=== PATIENT | male | born 1960 | race Caucasian/White ===

== ENCOUNTER 2017-05-31 17:58 | Inpatient (IN) | payer BC ==
[~2017-05-31] VITALS: Ht 177.8 cm; Wt 79.4 kg
[2017-05-31] MEDS ORDERED: LEVO25TA4 PO (18:05)
[2017-05-31] MEDS ORDERED: FOLI0.4T2 PO (18:05)
[2017-05-31] MEDS ORDERED: FERR325T18 PO (18:06)
[2017-05-31] MEDS ORDERED: METO25TA35 PO (18:06)
[2017-05-31] MEDS ORDERED: SODIUM CHLORIDE 0.9% 1,000 ML IV ONE (18:13)
[2017-05-31] MEDS ORDERED: ACETAMINOPHEN 325 MG TABLET PO ONE (18:30)
[2017-05-31] MEDS ORDERED: SODIUM CHLORIDE 0.9% 1,000ML IVBOLUS ONE (18:30)
[2017-05-31] MEDS ORDERED: SODIUM CHLORIDE FLUSH 10ML SYR IVF ONE (18:30)
[2017-05-31] MEDS ORDERED: ACETAMINOPHEN 325 MG TABLET ONE (18:42)
[2017-05-31 18:52] LABS: RAPID INFLUENZA A Negative (Negative); RAPID INFLUENZA B Negative (Negative)
[2017-05-31 18:52] LABS: ALANINE AMINOTRANSFERASE 38 U/L (12-78); ALBUMIN 3.2 g/dL (3.4-5.0); ANION GAP 14 mmol/L (5-15); CALCIUM 7.5 mg/dL (8.5-10.1); CHLORIDE 100 mmol/L (98-107); CREATININE 1.08 mg/dL (0.7-1.3)
[2017-05-31 18:58] LABS: ALKALINE PHOSPHATASE 176 U/L (45-117); BILIRUBIN,TOTAL 2.4 mg/dL (0.2-1.0); CREATINE KINASE, TOTAL 551 U/L (39-308); T4 (THYROXINE) 10.9 mcg/dL (4.5-12.1); TROPONIN I 0.026 ng/mL (0.000-0.045)
[2017-05-31 19:07] LABS: MD YES; MEAN CORPUSCULAR HEMOGLOBIN 33.5 pg (27.5-34.5); MEAN CORPUSCULAR HGB CONC 33.2 g/dL (33.2-36.2); MEAN CORPUSCULAR VOLUME 100.9 fL (81-97); MEAN PLATELET VOLUME 10.4 fL (7.4-10.4); PLATELET COUNT 72 x10^3/uL (130-400); RED BLOOD COUNT 3.41 x10^6/uL (4.38-5.82); RED CELL DISTRIBUTION WIDTH 18.3 % (9.4-14.8)
[2017-05-31 19:10] LABS: ANISOCYTOSIS 1+; BAND#(MANUAL) 0.26 x10^3/uL; BANDS%(MANUAL) 4 % (0-7); LYMPH#(MANUAL) 0.64 x10^3/uL (1-3.4); LYMPHS% (MANUAL) 10 % (22-44); MONOS#(MANUAL) 0.96 x10^3/uL (0.3-2.7); MONOS% (MANUAL) 15 % (2-9); POLYCHROMASIA 1+; SEG#(MANUAL) 4.54 x10^3/uL (1.8-6.8); SEGS% (MANUAL) 71 % (42-75)
[2017-05-31 19:11] LABS: <PLATELET ESTIMATE> DECREASED; <PLT MORPHOLOGY> NORMAL PLT MORPH
[2017-05-31] MEDS ORDERED: LORazepam 2 MG/ML, 1ML ONE (19:26)
[2017-05-31] MEDS ORDERED: LORazepam 2 MG/ML, 1ML IVPush ONE (19:30)
[2017-05-31 19:39] LABS: MICROSCOPIC INDICATED
[2017-05-31 19:47] LABS: CULTURE INDICATED? NO
[2017-05-31] MEDS ORDERED: CEFTRIAXONE PMX 1GM/50ML 50 ML ONE (20:23)
[2017-05-31] MEDS ORDERED: MAGNESIUM SULFATE PMX 4GM/100M 100 ML IV ONE (20:30)
[2017-05-31] MEDS ORDERED: AZITHROMYCIN 500 MG in SODIUM CHLORIDE 0.9% 250 ML IVPB ONE (20:30)
[2017-05-31] MEDS ORDERED: CEFTRIAXONE PMX 1GM/50ML 50 ML IVPB ONE (20:30)
[2017-05-31] MEDS ORDERED: MAGNESIUM SULFATE 1 GM, THIAMINE 100 MG, FOLIC ACID 1 MG, MVI ADULT 10 ML in SODIUM CHL... IV ONE (20:30)
[2017-05-31] MEDS ORDERED: MAGNESIUM SULFATE 1 GM, FOLIC ACID 1 MG, MVI ADULT 10 ML in SODIUM CHLORIDE 0.9% 1,000 ML IV ONE (20:47)
[2017-05-31] MEDS ORDERED: POTASSIUM CHLORIDE 20 MEQ TAB.ER.PRT PO ONE (21:00)
[2017-05-31] MEDS ORDERED: BISACODYL 10 MG SUPP PR PRN (21:00)
[2017-05-31] MEDS ORDERED: ONDANSETRON 2MG/ML, 2ML IVPush PRN (21:00)
[2017-05-31] MEDS ORDERED: POLYETHYLENE GLYCOL 17 GM PACKET PO PRN (21:00)
[2017-05-31] MEDS ORDERED: VANCOMYCIN PER PHARMACY MC PRN (21:00)
[2017-05-31 21:03] LABS: HCT (SEDRATE) 34.4 % (39.2-51.8)
[2017-05-31 21:05] LABS: FOLATE LEVEL 17.1 ng/mL (3.1-17.5); FREE T4 (FREE THYROXINE) 1.55 ng/dL (0.76-1.46)
[2017-05-31 22:14] VITALS: BP 142/92
[2017-05-31] MEDS ORDERED: PHARMACOKINETIC MONITORING MC PRN (22:30)
[2017-05-31] MEDS: THIAMINE 100MG TABLET PO SCH (22:59)
[2017-05-31] MEDS: FERROUS SULFATE 325 MG TABLET PO SCH (22:59)
[2017-05-31] MEDS: SODIUM CHLORIDE FLUSH 10ML SYR IVF SCH (22:59)
[2017-05-31] MEDS: VANCOMYCIN 1,600 MG in SODIUM CHLORIDE 0.9% 250 ML IV SCH (23:25)
[2017-06-01 01:34] VITALS: BP 122/71
[2017-06-01] MEDS: PIPERACILLIN/TAZO/PMX 3.375GM 50 ML IV SCH ×4 (02:12→20:37)
[2017-06-01] MEDS: LEVOTHYROXINE 25 MCG TABLET PO SCH (04:55)
[2017-06-01 05:33] LABS: MEAN CORPUSCULAR HEMOGLOBIN 34.3 pg (27.5-34.5); MEAN CORPUSCULAR HGB CONC 34.1 g/dL (33.2-36.2); MEAN CORPUSCULAR VOLUME 100.6 fL (81-97); MEAN PLATELET VOLUME 10.5 fL (7.4-10.4); PLATELET COUNT 62 x10^3/uL (130-400); RED BLOOD COUNT 2.92 x10^6/uL (4.38-5.82); RED CELL DISTRIBUTION WIDTH 17.6 % (9.4-14.8)
[2017-06-01 05:34] LABS: CHLORIDE 103 mmol/L (98-107)
[2017-06-01 05:44] LABS: ALANINE AMINOTRANSFERASE 33 U/L (12-78); ALBUMIN 2.7 g/dL (3.4-5.0); ALKALINE PHOSPHATASE 142 U/L (45-117); ANION GAP 10 mmol/L (5-15); CALCIUM 6.8 mg/dL (8.5-10.1); CREATININE 0.95 mg/dL (0.7-1.3); TOTAL PROTEIN 6.8 g/dL (6.4-8.2)
[2017-06-01 06:19] LABS: MD YES
[2017-06-01 06:23] LABS: <PLATELET ESTIMATE> DECREASED; <PLT MORPHOLOGY> NORMAL PLT MORPH; ANISOCYTOSIS 1+; LYMPH#(MANUAL) 0.33 x10^3/uL (1-3.4); LYMPHS% (MANUAL) 8 % (22-44); MONOS#(MANUAL) 1.15 x10^3/uL (0.3-2.7); MONOS% (MANUAL) 28 % (2-9); POLYCHROMASIA 1+; SEG#(MANUAL) 2.62 x10^3/uL (1.8-6.8); SEGS% (MANUAL) 64 % (42-75)
[2017-06-01 06:45] VITALS: BP 134/78
[2017-06-01] MEDS: THIAMINE 100MG TABLET PO SCH ×2 (08:48→20:37)
[2017-06-01] MEDS: FERROUS SULFATE 325 MG TABLET PO SCH ×2 (08:48→17:21)
[2017-06-01] MEDS: FOLIC ACID 1 MG TABLET PO SCH (08:49)
[2017-06-01] MEDS: SODIUM CHLORIDE FLUSH 10ML SYR IVF SCH ×2 (08:49→20:37)
[2017-06-01] MEDS: SENNA/DOCUSATE TABLET PO SCH (08:49)
[2017-06-01] MEDS: MULTIVITAMIN 1 TABLET PO SCH (08:49)
[2017-06-01] MEDS: METOPROLOL TARTRATE 25 MG TABLET PO SCH (08:49)
[2017-06-01] MEDS: POTASSIUM CHLORIDE 20 MEQ TAB.ER.PRT PO SCH ×2 (09:51→17:21)
[2017-06-01] MEDS: VANCOMYCIN 1,600 MG in SODIUM CHLORIDE 0.9% 250 ML IV SCH ×2 (11:40→23:32)
[2017-06-01] MEDS: LORazepam 2 MG/ML, 1ML IVPush PRN ×2 (12:52→22:01)
[2017-06-01] MEDS ORDERED: GADOBUTROL 7.5 MMOL/7.5 ML PFS ONE (13:30)
[2017-06-01 13:40] VITALS: BP 145/94
[2017-06-01 19:30] LABS: CLOSTRIDIUM DIFFICILE ANTIGEN NEGATIVE; CLOSTRIDIUM DIFFICILE TOXIN NEGATIVE (Negative)
[2017-06-01 20:50] VITALS: BP 143/95
[2017-06-02] VITALS (7 sets, daily range): BP systolic 108–173; BP diastolic 52–106
[2017-06-02] MEDS ORDERED: LORazepam 0.5MG TABLET PO PRN (00:30)
[2017-06-02] MEDS ORDERED: LORazepam 1MG TABLET PO PRN ×4 (00:30)
[2017-06-02] MEDS ORDERED: LORazepam 2 MG/ML, 1ML IV PRN ×3 (00:30)
[2017-06-02] MEDS: LORazepam 2 MG/ML, 1ML IV PRN ×8 (00:35→20:40)
[2017-06-02] MEDS: PIPERACILLIN/TAZO/PMX 3.375GM 50 ML IV SCH ×4 (02:01→21:29)
[2017-06-02] MEDS: LEVOTHYROXINE 25 MCG TABLET PO SCH (05:31)
[2017-06-02 06:00] LABS: MEAN CORPUSCULAR HGB CONC 33.8 g/dL (33.2-36.2); MEAN CORPUSCULAR VOLUME 100.6 fL (81-97); MEAN PLATELET VOLUME 10.5 fL (7.4-10.4); PLATELET COUNT 73 x10^3/uL (130-400); RED BLOOD COUNT 2.91 x10^6/uL (4.38-5.82); RED CELL DISTRIBUTION WIDTH 17.6 % (9.4-14.8)
[2017-06-02 06:04] LABS: ALANINE AMINOTRANSFERASE 40 U/L (12-78); ALBUMIN 2.7 g/dL (3.4-5.0); ANION GAP 10 mmol/L (5-15); CALCIUM 6.9 mg/dL (8.5-10.1); CHLORIDE 104 mmol/L (98-107); CREATININE 0.97 mg/dL (0.7-1.3)
[2017-06-02 06:06] LABS: ALKALINE PHOSPHATASE 152 U/L (45-117); BILIRUBIN,TOTAL 2.2 mg/dL (0.2-1.0); TOTAL PROTEIN 6.7 g/dL (6.4-8.2)
[2017-06-02 06:24] LABS: MD YES
[2017-06-02 06:31] LABS: LYMPH#(MANUAL) 0.37 x10^3/uL (1-3.4); LYMPHS% (MANUAL) 8 % (22-44); MONOS#(MANUAL) 0.28 x10^3/uL (0.3-2.7); MONOS% (MANUAL) 6 % (2-9); SEG#(MANUAL) 3.96 x10^3/uL (1.8-6.8); SEGS% (MANUAL) 86 % (42-75)
[2017-06-02 06:32] LABS: <PLATELET ESTIMATE> DECREASED; <PLT MORPHOLOGY> NORMAL PLT MORPH; ANISOCYTOSIS 1+
[2017-06-02] MEDS ORDERED: MAGNESIUM SULFATE PMX 4GM/100M 100 ML IV ONE (07:30)
[2017-06-02] MEDS: HEPARIN 5,000 UNITS/ML, 1ML SQ SCH ×3 (08:18→23:30)
[2017-06-02] MEDS: POTASSIUM CHLORIDE 20 MEQ TAB.ER.PRT PO SCH (08:36)
[2017-06-02] MEDS: FERROUS SULFATE 325 MG TABLET PO SCH ×2 (08:36→17:06)
[2017-06-02] MEDS: SENNA/DOCUSATE TABLET PO SCH (09:38)
[2017-06-02] MEDS: THIAMINE 100MG TABLET PO SCH ×2 (10:11→21:00)
[2017-06-02] MEDS: FOLIC ACID 1 MG TABLET PO SCH (10:11)
[2017-06-02] MEDS: MULTIVITAMIN 1 TABLET PO SCH (10:11)
[2017-06-02] MEDS: CHLORDIAZEPOXIDE 25 MG CAPSULE PO SCH ×3 (10:11→21:00)
[2017-06-02] MEDS: METOPROLOL TARTRATE 25 MG TABLET PO SCH (10:11)
[2017-06-02] MEDS: SODIUM CHLORIDE FLUSH 10ML SYR IVF SCH ×2 (10:17→21:30)
[2017-06-02] MEDS: VANCOMYCIN 1,600 MG in SODIUM CHLORIDE 0.9% 250 ML IV SCH ×2 (11:46→23:38)
[2017-06-03] MEDS: LORazepam 2 MG/ML, 1ML IV PRN ×2 (00:54→03:20)
[2017-06-03 02:00] VITALS: BP 166/98
[2017-06-03] MEDS: PIPERACILLIN/TAZO/PMX 3.375GM 50 ML IV SCH (03:19)
[2017-06-03] MEDS: LEVOTHYROXINE 25 MCG TABLET PO SCH (06:00)
[2017-06-03 06:07] LABS: MEAN CORPUSCULAR HEMOGLOBIN 33.7 pg (27.5-34.5); MEAN CORPUSCULAR HGB CONC 33.3 g/dL (33.2-36.2); MEAN CORPUSCULAR VOLUME 101.2 fL (81-97); MEAN PLATELET VOLUME 10.8 fL (7.4-10.4); PLATELET COUNT 107 x10^3/uL (130-400); RED BLOOD COUNT 2.98 x10^6/uL (4.38-5.82); RED CELL DISTRIBUTION WIDTH 17.4 % (9.4-14.8)
[2017-06-03 06:11] LABS: CHLORIDE 104 mmol/L (98-107)
[2017-06-03 06:51] LABS: ALANINE AMINOTRANSFERASE 32 U/L (12-78); ALBUMIN 2.7 g/dL (3.4-5.0); ALKALINE PHOSPHATASE 151 U/L (45-117); ANION GAP 13 mmol/L (5-15); BILIRUBIN,TOTAL 2.6 mg/dL (0.2-1.0); CALCIUM 7.6 mg/dL (8.5-10.1); CREATININE 0.82 mg/dL (0.7-1.3); TOTAL PROTEIN 7.1 g/dL (6.4-8.2)
[2017-06-03 06:52] LABS: MD YES
[2017-06-03 06:55] LABS: BAND#(MANUAL) 0.06 x10^3/uL; BANDS%(MANUAL) 1 % (0-7); BASOS#(MANUAL) 0.06 x10^3/uL (0-0.1); BASOS% (MANUAL) 1 % (0-1); LYMPH#(MANUAL) 0.79 x10^3/uL (1-3.4); LYMPHS% (MANUAL) 13 % (22-44); MONOS#(MANUAL) 0.67 x10^3/uL (0.3-2.7); MONOS% (MANUAL) 11 % (2-9); SEG#(MANUAL) 4.51 x10^3/uL (1.8-6.8); SEGS% (MANUAL) 74 % (42-75)
[2017-06-03 06:56] LABS: ANISOCYTOSIS 1+; POLYCHROMASIA 1+
[2017-06-03 06:57] LABS: <PLATELET ESTIMATE> DECREASED; LARGE PLATELETS 1+
[2017-06-03 08:00] VITALS: BP 175/110
[2017-06-03] MEDS ORDERED: POTASSIUM CHLORIDE 20 MEQ, MAGNESIUM SULFATE 1 GM, FOLIC ACID 1 MG, MVI ADULT 10 ML in ... IV SCH (08:00)
[2017-06-03] MEDS ORDERED: THIAMINE 100MG TABLET PO SCH (09:00)
== END 2017-06-03 12:36 | disposition left against medical advice (07) | DRG 894 ==
LOC: ED 20:55 → EDIP 21:07 → 4EST 22:00
PROVIDERS: ADMIT Hospitalist; ATTEND Hospitalist
DX: F10.239 Alcohol dependence with withdrawal, unspecified (principal); D69.6 Thrombocytopenia, unspecified; I11.0 Hypertensive heart disease with heart failure; E44.1 Mild protein-calorie malnutrition; E83.42 Hypomagnesemia; E87.1 Hypo-osmolality and hyponatremia; E87.2 Acidosis; I50.20 Unspecified systolic (congestive) heart failure; R65.10 Systemic inflammatory response syndrome (SIRS) of non-infectious origin without acute organ dysfunction; R17 Unspecified jaundice; D53.9 Nutritional anemia, unspecified; E86.0 Dehydration; Z53.21 Procedure and treatment not carried out due to patient leaving prior to being seen by health care provider; E87.6 Hypokalemia; E89.0 Postprocedural hypothyroidism; G62.9 Polyneuropathy, unspecified; I25.10 Atherosclerotic heart disease of native coronary artery without angina pectoris; J45.909 Unspecified asthma, uncomplicated; M19.90 Unspecified osteoarthritis, unspecified site; R13.10 Dysphagia, unspecified; Z85.819 Personal history of malignant neoplasm of unspecified site of lip, oral cavity, and pharynx; Z87.891 Personal history of nicotine dependence; Z92.21 Personal history of antineoplastic chemotherapy; Z92.3 Personal history of irradiation; Z95.5 Presence of coronary angioplasty implant and graft; Z68.25 Body mass index [BMI] 25.0-25.9, adult
CPT/HCPCS: 36415; 71045; 72158; 74230; 80053; 81001; 82550; 82553; 82607; 82746; 83605; 83735; 83880; 84436; 84439; 84443; 84484; 85025; 85651; 86141; 87040; 87324; 87400; 93005; 96365; 96375; A9585; J0696; J1644; J2543; J3370; J2060; J3475; J7030; J7050

== ENCOUNTER 2017-06-09 15:14 | Inpatient (IN) | payer BC ==
[~2017-06-09] VITALS: Ht 177.8 cm; Wt 76.5 kg
[~2017-06-09 15:14] MED LIST: FERR325T18 PO; FOLI0.4T2 PO; LEVO25TA4 PO; METO25TA35 PO
[2017-06-09] MEDS ORDERED: SODIUM CHLORIDE FLUSH 10ML SYR IVF PRN (16:30)
[2017-06-09 17:31] LABS: INTERNATIONAL NORMALIZED RATIO 1.24 (0.93-1.1); PROTHROMBIN TIME 12.7 Seconds (9.6-11.5)
[2017-06-09 17:35] LABS: ALANINE AMINOTRANSFERASE 45 U/L (12-78); ALBUMIN 2.7 g/dL (3.4-5.0); ANION GAP 11 mmol/L (5-15); CALCIUM 8.4 mg/dL (8.5-10.1); CHLORIDE 107 mmol/L (98-107); CREATININE 1.81 mg/dL (0.7-1.3); MEAN CORPUSCULAR HEMOGLOBIN 33.1 pg (27.5-34.5); MEAN CORPUSCULAR HGB CONC 33.2 g/dL (33.2-36.2); MEAN CORPUSCULAR VOLUME 99.5 fL (81-97); MEAN PLATELET VOLUME 9.5 fL (7.4-10.4); PLATELET COUNT 379 x10^3/uL (130-400); RED BLOOD COUNT 3.06 x10^6/uL (4.38-5.82); RED CELL DISTRIBUTION WIDTH 17.7 % (9.4-14.8)
[2017-06-09 17:38] LABS: ALKALINE PHOSPHATASE 206 U/L (45-117); BILIRUBIN,TOTAL 1.3 mg/dL (0.2-1.0); TOTAL PROTEIN 7.6 g/dL (6.4-8.2)
[2017-06-09] MEDS ORDERED: SODIUM CHLORIDE 0.9% 1,000 ML IV SCH (17:52)
[2017-06-09 17:59] LABS: BASOPHILS # (AUTO) 0.02 x10^3/uL (0-0.1); BASOPHILS % (AUTO) 0 % (0-1); EOSINOPHILS # (AUTO) 0.03 x10^3/uL (0-0.4); EOSINOPHILS % (AUTO) 0 % (1-7); LYMPHOCYTES # (AUTO) 0.52 x10^3/uL (1-3.4); LYMPHOCYTES % (AUTO) 5 % (22-44); MD SCAN; MONOCYTES # (AUTO) 0.92 x10^3/uL (0.2-0.8); MONOCYTES % (AUTO) 8 % (2-9); NEUTROPHILS # (AUTO) 10.16 x10^3/uL (1.8-6.8); NEUTROPHILS % (AUTO) 87 % (42-75)
[2017-06-09] MEDS ORDERED: HYDROcodone/APAP 5/325 TABLET PO PRN (18:00)
[2017-06-09] MEDS ORDERED: ONDANSETRON 2MG/ML, 2ML IVPush PRN (18:00)
[2017-06-09] MEDS: HEPARIN 5,000 UNITS/ML, 1ML SQ SCH (18:00)
[2017-06-09] MEDS ORDERED: ONDANSETRON ODT 4 MG PO PRN (18:00)
[2017-06-09] MEDS ORDERED: POLYETHYLENE GLYCOL 17 GM PACKET PO PRN (18:00)
[2017-06-09] MEDS ORDERED: LABETALOL 5MG/ML, 20ML IVPush PRN (18:00)
[2017-06-09 18:30] VITALS: BP 167/102
[2017-06-09 19:30] LABS: FREE T4 (FREE THYROXINE) 1.45 ng/dL (0.76-1.46)
[2017-06-09 23:07] LABS: MICROSCOPIC AUTO
[2017-06-09 23:12] LABS: CULTURE INDICATED? NO
[2017-06-09 23:14] LABS: CHLORIDE,URINE RANDOM 27 mmol/L; POTASSIUM,URINE RANDOM 23 mmol/L; SODIUM,URINE RANDOM 37 mmol/L
[2017-06-09 23:17] LABS: AMPHETAMINE SCREEN, URINE Negative (Negative); BARBITURATE SCREEN, URINE Negative (Negative); BENZODIAZEPINE SCREEN, URINE Positive (Negative); CANNABINOID SCREEN, URINE Negative (Negative); COCAINE SCREEN, URINE Negative (Negative); METHADONE SCREEN, URINE Negative (Negative); OPIATE SCREEN, URINE Negative (Negative)
[2017-06-10 02:00] VITALS: BP 144/90
[2017-06-10] MEDS: HEPARIN 5,000 UNITS/ML, 1ML SQ SCH ×3 (04:20→20:22)
[2017-06-10 04:35] LABS: CLOSTRIDIUM DIFFICILE TOXIN NEGATIVE (Negative)
[2017-06-10 04:37] LABS: CLOSTRIDIUM DIFFICILE ANTIGEN POSITIVE
[2017-06-10 07:35] LABS: BASOPHILS # (AUTO) 0.02 x10^3/uL (0-0.1); BASOPHILS % (AUTO) 0 % (0-1); EOSINOPHILS # (AUTO) 0.02 x10^3/uL (0-0.4); EOSINOPHILS % (AUTO) 0 % (1-7); LYMPHOCYTES % (AUTO) 4 % (22-44); MD NO; MEAN CORPUSCULAR HEMOGLOBIN 32.8 pg (27.5-34.5); MEAN CORPUSCULAR VOLUME 99.3 fL (81-97); MONOCYTES # (AUTO) 1.08 x10^3/uL (0.2-0.8); MONOCYTES % (AUTO) 11 % (2-9); NEUTROPHILS # (AUTO) 8.59 x10^3/uL (1.8-6.8); NEUTROPHILS % (AUTO) 85 % (42-75); PLATELET COUNT 351 x10^3/uL (130-400); RED BLOOD COUNT 2.92 x10^6/uL (4.38-5.82); RED CELL DISTRIBUTION WIDTH 17.9 % (9.4-14.8)
[2017-06-10 07:38] VITALS: BP 134/94
[2017-06-10 07:42] LABS: ALBUMIN 2.6 g/dL (3.4-5.0); ANION GAP 11 mmol/L (5-15); CALCIUM 8.7 mg/dL (8.5-10.1); CHLORIDE 108 mmol/L (98-107); CREATININE 1.84 mg/dL (0.7-1.3)
[2017-06-10] MEDS ORDERED: ERGOCALCIFEROL 50,000 UNIT CAPSULE PO SCH (09:00)
[2017-06-10] MEDS ORDERED: PHARMACY MAY ADJ FOR RENAL FX MC PRN (09:00)
[2017-06-10] MEDS ORDERED: SODIUM CHLORIDE 0.9% 1,000ML IVBOLUS ONE (09:00)
[2017-06-10] MEDS: METOPROLOL TARTRATE 25 MG TABLET PO SCH (09:07)
[2017-06-10] MEDS: THIAMINE 100MG TABLET PO SCH (09:07)
[2017-06-10] MEDS: LEVOTHYROXINE 25 MCG TABLET PO SCH (09:07)
[2017-06-10] MEDS: SENNA/DOCUSATE TABLET PO SCH (09:08)
[2017-06-10] MEDS: FOLIC ACID 1 MG TABLET PO SCH (09:08)
[2017-06-10] MEDS: SODIUM BICARBONATE 650 MG TABLET PO SCH ×2 (09:49→20:34)
[2017-06-10] MEDS: VANCOMYCIN 50 MG/ML ORAL SUSP PO SCH ×3 (09:49→20:34)
[2017-06-10] MEDS: SODIUM CHLORIDE 0.9% 1,000 ML IV SCH ×2 (12:58→20:23)
[2017-06-10 13:33] VITALS: BP 162/84
[2017-06-10 19:33] VITALS: BP 143/90
[2017-06-11 03:30] VITALS: BP 136/89
[2017-06-11] MEDS: VANCOMYCIN 50 MG/ML ORAL SUSP PO SCH ×3 (03:31→15:27)
[2017-06-11] MEDS: HEPARIN 5,000 UNITS/ML, 1ML SQ SCH ×3 (03:32→20:34)
[2017-06-11] MEDS: SODIUM CHLORIDE 0.9% 1,000 ML IV SCH ×2 (03:34→11:31)
[2017-06-11 08:00] VITALS: BP 149/97
[2017-06-11 09:25] LABS: ALBUMIN 2.4 g/dL (3.4-5.0); ANION GAP 8 mmol/L (5-15); CALCIUM 7.8 mg/dL (8.5-10.1); CHLORIDE 111 mmol/L (98-107); CREATININE 1.38 mg/dL (0.7-1.3)
[2017-06-11 10:13] LABS: BASOPHILS # (AUTO) 0.03 x10^3/uL (0-0.1); BASOPHILS % (AUTO) 0 % (0-1); EOSINOPHILS # (AUTO) 0.05 x10^3/uL (0-0.4); EOSINOPHILS % (AUTO) 1 % (1-7); LYMPHOCYTES # (AUTO) 0.46 x10^3/uL (1-3.4); LYMPHOCYTES % (AUTO) 6 % (22-44); MD NO; MEAN CORPUSCULAR HEMOGLOBIN 33.4 pg (27.5-34.5); MEAN CORPUSCULAR HGB CONC 33.5 g/dL (33.2-36.2); MEAN CORPUSCULAR VOLUME 99.8 fL (81-97); MEAN PLATELET VOLUME 10.3 fL (7.4-10.4); MONOCYTES # (AUTO) 0.76 x10^3/uL (0.2-0.8); MONOCYTES % (AUTO) 10 % (2-9); NEUTROPHILS # (AUTO) 5.96 x10^3/uL (1.8-6.8); NEUTROPHILS % (AUTO) 82 % (42-75); PLATELET COUNT 300 x10^3/uL (130-400); RED BLOOD COUNT 2.81 x10^6/uL (4.38-5.82); RED CELL DISTRIBUTION WIDTH 17.1 % (9.4-14.8)
[2017-06-11] MEDS: METOPROLOL TARTRATE 25 MG TABLET PO SCH (10:47)
[2017-06-11] MEDS: FOLIC ACID 1 MG TABLET PO SCH (10:47)
[2017-06-11] MEDS: LEVOTHYROXINE 25 MCG TABLET PO SCH (10:48)
[2017-06-11] MEDS: SODIUM BICARBONATE 650 MG TABLET PO SCH ×2 (10:48→20:37)
[2017-06-11] MEDS: SENNA/DOCUSATE TABLET PO SCH (10:48)
[2017-06-11] MEDS: THIAMINE 100MG TABLET PO SCH (10:48)
[2017-06-11 12:09] VITALS: BP 141/96
[2017-06-11] MEDS: SODIUM CHLORIDE 0.45% 1,000 ML IV SCH ×2 (13:26→20:34)
[2017-06-11] MEDS ORDERED: GADOBUTROL 10 MMOL/10 ML VIAL ONE (17:51)
[2017-06-11] MEDS: METRONIDAZOLE PMX 500MG/100ML 100 ML IV SCH (18:06)
[2017-06-11 19:45] VITALS: BP 153/102
[2017-06-11 20:31] VITALS: BP 158/95
[2017-06-12 00:34] VITALS: BP 148/93
[2017-06-12] MEDS: METRONIDAZOLE PMX 500MG/100ML 100 ML IV SCH ×3 (01:55→18:10)
[2017-06-12] MEDS: HEPARIN 5,000 UNITS/ML, 1ML SQ SCH ×3 (03:58→20:40)
[2017-06-12] MEDS: SODIUM CHLORIDE 0.45% 1,000 ML IV SCH ×3 (03:59→20:36)
[2017-06-12 05:01] LABS: ALBUMIN 2.3 g/dL (3.4-5.0); ANION GAP 9 mmol/L (5-15); CALCIUM 7.5 mg/dL (8.5-10.1); CHLORIDE 110 mmol/L (98-107)
[2017-06-12 05:04] LABS: CREATININE 1.24 mg/dL (0.7-1.3)
[2017-06-12 05:13] LABS: BASOPHILS # (AUTO) 0.07 x10^3/uL (0-0.1); BASOPHILS % (AUTO) 1 % (0-1); EOSINOPHILS # (AUTO) 0.06 x10^3/uL (0-0.4); EOSINOPHILS % (AUTO) 1 % (1-7); LYMPHOCYTES # (AUTO) 0.41 x10^3/uL (1-3.4); LYMPHOCYTES % (AUTO) 6 % (22-44); MD NO; MEAN CORPUSCULAR HEMOGLOBIN 32.3 pg (27.5-34.5); MEAN CORPUSCULAR HGB CONC 32.7 g/dL (33.2-36.2); MEAN CORPUSCULAR VOLUME 98.8 fL (81-97); MEAN PLATELET VOLUME 9.8 fL (7.4-10.4); MONOCYTES % (AUTO) 11 % (2-9); NEUTROPHILS # (AUTO) 5.75 x10^3/uL (1.8-6.8); NEUTROPHILS % (AUTO) 81 % (42-75); PLATELET COUNT 309 x10^3/uL (130-400); RED BLOOD COUNT 2.75 x10^6/uL (4.38-5.82); RED CELL DISTRIBUTION WIDTH 17.6 % (9.4-14.8)
[2017-06-12 07:23] VITALS: BP 155/98
[2017-06-12] MEDS: SENNA/DOCUSATE TABLET PO SCH (08:00)
[2017-06-12] MEDS: LEVOTHYROXINE 25 MCG TABLET PO SCH (08:08)
[2017-06-12] MEDS: THIAMINE 100MG TABLET PO SCH (08:08)
[2017-06-12] MEDS: SODIUM BICARBONATE 650 MG TABLET PO SCH ×2 (08:09→20:36)
[2017-06-12] MEDS: METOPROLOL TARTRATE 25 MG TABLET PO SCH (08:09)
[2017-06-12] MEDS: FOLIC ACID 1 MG TABLET PO SCH (08:09)
[2017-06-12 12:45] VITALS: BP 141/95
[2017-06-12] MEDS ORDERED: CALCIUM CARBONATE 500 MG TAB.CHEW ONE (15:52)
[2017-06-12] MEDS: CALCIUM CARBONATE 500 MG TAB.CHEW PO PRN ×2 (15:54→21:20)
[2017-06-12] MEDS ORDERED: POTASSIUM CHLORIDE 20 MEQ TAB.ER.PRT PO ONE (19:00)
[2017-06-12 19:08] VITALS: BP 151/96
[2017-06-13] MEDS: METRONIDAZOLE PMX 500MG/100ML 100 ML IV SCH ×3 (02:22→17:40)
[2017-06-13 02:30] VITALS: BP 155/92
[2017-06-13] MEDS: HEPARIN 5,000 UNITS/ML, 1ML SQ SCH ×3 (03:59→19:51)
[2017-06-13] MEDS: SODIUM CHLORIDE 0.45% 1,000 ML IV SCH (04:00)
[2017-06-13 04:51] LABS: BASOPHILS # (AUTO) 0.05 x10^3/uL (0-0.1); BASOPHILS % (AUTO) 1 % (0-1); EOSINOPHILS # (AUTO) 0.06 x10^3/uL (0-0.4); EOSINOPHILS % (AUTO) 1 % (1-7); LYMPHOCYTES # (AUTO) 0.49 x10^3/uL (1-3.4); LYMPHOCYTES % (AUTO) 7 % (22-44); MD NO; MEAN CORPUSCULAR HEMOGLOBIN 32.3 pg (27.5-34.5); MEAN CORPUSCULAR HGB CONC 32.9 g/dL (33.2-36.2); MEAN PLATELET VOLUME 9.2 fL (7.4-10.4); MONOCYTES # (AUTO) 0.73 x10^3/uL (0.2-0.8); MONOCYTES % (AUTO) 10 % (2-9); NEUTROPHILS # (AUTO) 5.94 x10^3/uL (1.8-6.8); NEUTROPHILS % (AUTO) 82 % (42-75); PLATELET COUNT 299 x10^3/uL (130-400); RED BLOOD COUNT 2.78 x10^6/uL (4.38-5.82); RED CELL DISTRIBUTION WIDTH 17.4 % (9.4-14.8)
[2017-06-13 05:00] LABS: ALANINE AMINOTRANSFERASE 37 U/L (12-78); ALBUMIN 2.4 g/dL (3.4-5.0); ANION GAP 9 mmol/L (5-15); CHLORIDE 110 mmol/L (98-107)
[2017-06-13 05:02] LABS: ALKALINE PHOSPHATASE 200 U/L (45-117); BILIRUBIN,TOTAL 1.1 mg/dL (0.2-1.0); TOTAL PROTEIN 6.8 g/dL (6.4-8.2)
[2017-06-13] MEDS: LEVOTHYROXINE 25 MCG TABLET PO SCH (06:10)
[2017-06-13 06:54] VITALS: BP 158/97
[2017-06-13] MEDS: SODIUM BICARBONATE 650 MG TABLET PO SCH ×2 (08:20→19:50)
[2017-06-13] MEDS: FOLIC ACID 1 MG TABLET PO SCH (08:20)
[2017-06-13] MEDS: METOPROLOL TARTRATE 25 MG TABLET PO SCH (08:20)
[2017-06-13] MEDS: THIAMINE 100MG TABLET PO SCH (08:20)
[2017-06-13] MEDS: SENNA/DOCUSATE TABLET PO SCH (08:21)
[2017-06-13] MEDS ORDERED: ALBUTEROL/IPRATROPIUM 2.5MG/0.5MG, 3 ML ONE (11:49)
[2017-06-13] MEDS ORDERED: ALBUTEROL/IPRATROPIUM 2.5MG/0.5MG, 3 ML NPPB PRN (12:30)
[2017-06-13 13:00] VITALS: BP 148/97
[2017-06-13 20:13] VITALS: BP 150/105
[2017-06-13] MEDS: CALCIUM CARBONATE 500 MG TAB.CHEW PO PRN (20:54)
[2017-06-14] MEDS: METRONIDAZOLE PMX 500MG/100ML 100 ML IV SCH ×3 (02:37→17:54)
[2017-06-14 02:39] VITALS: BP 155/102
[2017-06-14] MEDS: HEPARIN 5,000 UNITS/ML, 1ML SQ SCH ×3 (03:57→20:00)
[2017-06-14] MEDS: LEVOTHYROXINE 25 MCG TABLET PO SCH (06:00)
[2017-06-14 07:23] VITALS: BP 158/100
[2017-06-14 07:30] VITALS: BP 165/95
[2017-06-14] MEDS: SENNA/DOCUSATE TABLET PO SCH (09:00)
[2017-06-14] MEDS: FOLIC ACID 1 MG TABLET PO SCH (09:25)
[2017-06-14] MEDS: THIAMINE 100MG TABLET PO SCH (09:25)
[2017-06-14] MEDS: SODIUM BICARBONATE 650 MG TABLET PO SCH ×2 (09:25→20:38)
[2017-06-14 11:38] VITALS: BP 147/96
[2017-06-14] MEDS: CALCIUM CARBONATE 500 MG TAB.CHEW PO PRN (12:05)
[2017-06-14 13:46] VITALS: BP 143/91
[2017-06-14] MEDS: METOPROLOL TARTRATE 25 MG TABLET PO SCH (17:55)
[2017-06-14] MEDS: metroNIDAZOLE 500 MG TABLET PO SCH (20:38)
[2017-06-14 20:39] VITALS: BP 144/91
[2017-06-15] MEDS: HEPARIN 5,000 UNITS/ML, 1ML SQ SCH ×3 (03:45→20:00)
[2017-06-15] MEDS: metroNIDAZOLE 500 MG TABLET PO SCH ×3 (04:25→20:03)
[2017-06-15] MEDS: LEVOTHYROXINE 25 MCG TABLET PO SCH (04:25)
[2017-06-15 04:37] VITALS: BP 148/91
[2017-06-15 05:39] LABS: BASOPHILS # (AUTO) 0.07 x10^3/uL (0-0.1); BASOPHILS % (AUTO) 1 % (0-1); EOSINOPHILS # (AUTO) 0.08 x10^3/uL (0-0.4); EOSINOPHILS % (AUTO) 1 % (1-7); LYMPHOCYTES # (AUTO) 0.72 x10^3/uL (1-3.4); LYMPHOCYTES % (AUTO) 8 % (22-44); MD NO; MEAN CORPUSCULAR HEMOGLOBIN 32.6 pg (27.5-34.5); MEAN CORPUSCULAR HGB CONC 33.4 g/dL (33.2-36.2); MEAN CORPUSCULAR VOLUME 97.6 fL (81-97); MEAN PLATELET VOLUME 9.5 fL (7.4-10.4); MONOCYTES # (AUTO) 0.66 x10^3/uL (0.2-0.8); MONOCYTES % (AUTO) 8 % (2-9); NEUTROPHILS # (AUTO) 7.23 x10^3/uL (1.8-6.8); NEUTROPHILS % (AUTO) 83 % (42-75); PLATELET COUNT 295 x10^3/uL (130-400); RED BLOOD COUNT 2.97 x10^6/uL (4.38-5.82); RED CELL DISTRIBUTION WIDTH 17.7 % (9.4-14.8)
[2017-06-15 05:48] LABS: CHLORIDE 107 mmol/L (98-107)
[2017-06-15 06:18] LABS: % IRON SATURATION 25 % (20-55); ALANINE AMINOTRANSFERASE 35 U/L (12-78); ALBUMIN 2.7 g/dL (3.4-5.0); ALKALINE PHOSPHATASE 178 U/L (45-117); ANION GAP 13 mmol/L (5-15); BILIRUBIN,TOTAL 1.1 mg/dL (0.2-1.0); CALCIUM 8.4 mg/dL (8.5-10.1); IRON LEVEL 63 mcg/dL (65-175); TOTAL IRON BINDING CAPACITY 255 mcg/dL (250-450)
[2017-06-15 07:33] VITALS: BP 143/97
[2017-06-15] MEDS: SENNA/DOCUSATE TABLET PO SCH (09:01)
[2017-06-15] MEDS: THIAMINE 100MG TABLET PO SCH (10:09)
[2017-06-15] MEDS: SODIUM BICARBONATE 650 MG TABLET PO SCH ×2 (10:09→20:03)
[2017-06-15] MEDS: FOLIC ACID 1 MG TABLET PO SCH (10:10)
[2017-06-15] MEDS: METOPROLOL TARTRATE 25 MG TABLET PO SCH ×2 (10:10→17:38)
[2017-06-15 13:48] VITALS: BP 128/81
[2017-06-15 19:45] VITALS: BP 133/96
[2017-06-16 03:00] VITALS: BP 143/95
[2017-06-16] MEDS: HEPARIN 5,000 UNITS/ML, 1ML SQ SCH ×2 (04:27→11:28)
[2017-06-16] MEDS: metroNIDAZOLE 500 MG TABLET PO SCH ×2 (04:27→11:28)
[2017-06-16] MEDS: LEVOTHYROXINE 25 MCG TABLET PO SCH (04:27)
[2017-06-16 05:15] LABS: ALBUMIN 2.7 g/dL (3.4-5.0); CHLORIDE 107 mmol/L (98-107)
[2017-06-16 05:21] LABS: ALANINE AMINOTRANSFERASE 29 U/L (12-78); ALKALINE PHOSPHATASE 160 U/L (45-117); ANION GAP 8 mmol/L (5-15); BILIRUBIN,TOTAL 0.9 mg/dL (0.2-1.0); CREATININE 1.21 mg/dL (0.7-1.3); TOTAL PROTEIN 6.6 g/dL (6.4-8.2)
[2017-06-16 07:10] VITALS: BP 128/87
[2017-06-16] MEDS: METOPROLOL TARTRATE 25 MG TABLET PO SCH (08:59)
[2017-06-16] MEDS: THIAMINE 100MG TABLET PO SCH (08:59)
[2017-06-16] MEDS: SODIUM BICARBONATE 650 MG TABLET PO SCH (08:59)
[2017-06-16] MEDS: FOLIC ACID 1 MG TABLET PO SCH (08:59)
[2017-06-16] MEDS: SENNA/DOCUSATE TABLET PO SCH (08:59)
[2017-06-16] MEDS ORDERED: METR500T PO (09:46)
== END 2017-06-16 13:58 | disposition home or self-care (01) | DRG 371 ==
LOC: ED 16:56 → EDIP 16:57 → ED 16:57 → 3NW 17:18
PROVIDERS: ADMIT Emergency Medicine; ATTEND Emergency Medicine
DX: A04.72 Enterocolitis due to Clostridium difficile, not specified as recurrent (principal); E43 Unspecified severe protein-calorie malnutrition; K85.90 Acute pancreatitis without necrosis or infection, unspecified; N17.9 Acute kidney failure, unspecified; I13.0 Hypertensive heart and chronic kidney disease with heart failure and stage 1 through stage 4 chronic kidney disease, or unspecified chronic kidney disease; D62 Acute posthemorrhagic anemia; G62.9 Polyneuropathy, unspecified; I50.9 Heart failure, unspecified; L03.115 Cellulitis of right lower limb; E86.0 Dehydration; E55.9 Vitamin D deficiency, unspecified; K76.9 Liver disease, unspecified; I25.10 Atherosclerotic heart disease of native coronary artery without angina pectoris; J45.909 Unspecified asthma, uncomplicated; M14.679 Charcot's joint, unspecified ankle and foot; Z68.24 Body mass index [BMI] 24.0-24.9, adult; E03.9 Hypothyroidism, unspecified; N18.9 Chronic kidney disease, unspecified; Z66 Do not resuscitate; Z85.21 Personal history of malignant neoplasm of larynx; Z85.819 Personal history of malignant neoplasm of unspecified site of lip, oral cavity, and pharynx; Z87.891 Personal history of nicotine dependence; Z92.21 Personal history of antineoplastic chemotherapy; Z92.3 Personal history of irradiation; Z95.5 Presence of coronary angioplasty implant and graft
CPT/HCPCS: 36415; 74183; 76700; 80048; 80053; 80307; 81001; 81003; 82040; 82105; 82306; 82436; 82570; 82607; 82728; 83540; 83550; 83690; 83735; 84100; 84133; 84300; 84439; 85025; 85610; 87324; 87493; 94640; A9585; J1644; J3370; J7620; J7030